=== PATIENT | female | born 1945 | race Caucasian/White ===

== ENCOUNTER 2023-09-09 08:23 | Outpatient (CLI) | payer MEDICARE, OTHER ==
[2023-09-09 12:13] LABS: BASOPHILS # (AUTO) 0.1 10^3/uL (0.0-0.1); BASOPHILS % (AUTO) 0.8 %; EOSINOPHILS # (AUTO) 0.2 10^3/uL (0.0-0.7); HCT - HEMATOCRIT 37.4 % (37.0-47.0); HGB - HEMOGLOBIN 11.5 g/dL (12.0-16.0); LYMPHOCYTES # (AUTO) 1.8 10^3/uL (1.5-3.5); LYMPHOCYTES % (AUTO) 19.8 %; MEAN CORPUSCULAR HEMOGLOBIN 28.3 pg (27.0-31.0); MEAN CORPUSCULAR HGB CONC 30.7 g/dL (32.0-36.0); MEAN CORPUSCULAR VOLUME 91.9 fL (81.0-99.0); MONOCYTES # (AUTO) 0.6 10^3/uL (0.0-1.0); MONOCYTES % (AUTO) 6.3 %; NEUTROPHILS # (AUTO) 6.5 10^3/uL (1.5-6.6); PLT - PLATELET COUNT 282 10^3/uL (130-450); RED BLOOD COUNT 4.07 10^6/uL (4.20-5.40); RED CELL DISTRIBUTION WIDTH 13.2 % (12.0-15.0); WHITE BLOOD COUNT 9.1 x10^3/uL (4.8-10.8)
[2023-09-09 12:23] LABS: ALBUMIN 4.1 g/dL (3.2-5.5); ALBUMIN/GLOBULIN RATIO 1.2 (1.0-2.2); ALKALINE PHOSPHATASE 79 IU/L (42-121); ALT ALANINE AMINOTRANSFERASE 10 IU/L (10-60); AST ASPARTATE AMINOTRANSFERASE 11 IU/L (10-42); BILIRUBIN,TOTAL 0.5 mg/dL (0.2-1.0); BUN - BLOOD UREA NITROGEN 34 mg/dL (6-20); CALCIUM 9.8 mg/dL (8.5-10.3); CARBON DIOXIDE - CO2 27 mmol/L (21-32); CHLORIDE 104 mmol/L (101-111); CHOL/HDL RATIO 6.3 (<4.4); CHOLESTEROL 221 mg/dL; CREATININE 1.9 mg/dL (0.6-1.3); GFR - MDRD 25 (>89); GLUCOSE 107 mg/dL (74-104); HDL CHOLESTEROL 35 mg/dL; LDL CHOLESTEROL,CALCULATED 156 mg/dL; LDL/HDL RATIO 4.5 (<4.4); POTASSIUM 4.4 mmol/L (3.5-4.5); SODIUM 137 mmol/L (135-145); TOTAL PROTEIN 7.4 g/dL (6.4-8.9); TRIGLYCERIDES 149 mg/dL (48-352); VLDL CHOLESTEROL 30 mg/dL
[2023-09-09 12:24] LABS: ESTIMATED AVERAGE GLUCOSE 120 mg/dL (70-100); HEMOGLOBIN A1c% 5.8 % (4.27-6.07)
[2023-09-09 12:35] LABS: THYROID STIMULATING HORMONE 5.61 uIU/mL (0.34-5.60)
== END 2023-09-09 08:24 | disposition home or self-care (01) ==
LOC: LAB.N 08:23
PROVIDERS: ATTEND Nurse Practitioner Family
DX: E03.9 Hypothyroidism, unspecified (principal); N28.9 Disorder of kidney and ureter, unspecified; I10 Essential (primary) hypertension; E78.5 Hyperlipidemia, unspecified; Z86.79 Personal history of other diseases of the circulatory system; Z13.1 Encounter for screening for diabetes mellitus
CPT/HCPCS: 36415; 80053; 80061; 83036; 83721; 84439; 84443; 85025

== ENCOUNTER 2023-10-09 10:17 | Outpatient (CLI) | payer MEDICARE, OTHER ==
--- NOTE | 2023-10-09 11:06 | Sleep Patient Instructions ---
Sleep Center Visit Summary - Patient Visit Information Reason for Visit: Initial consultation - Patient Instructions Additional Instructions: You will continue with CPAP therapy with pressure set at 10 cmH2O. A supply prescription will be updated with your DME. I have added an order to update your PAP machine. Please call the office to schedule a compliance follow up once you get your new device. We encourage you to try to lose weight. Please follow up with the sleep care office one month after obtaining new device. - Clinic Information Contact: [facility] [address] [place] [address] [email or web address] T: [phone]
--- NOTE | 2023-10-09 11:19 | SLEEP CARE CONSULTATION ---
Information from patient questionnaire entered by Trent Day. I have reviewed and concur with the information entered by Trent Day. This document represents the service I personally performed and the decisions made by me, Aishwarya Carson ARNP. History of Present Illness Service Date and Time: 10/09/2023 1017 Reason for Visit: New patient, Previously diagnosed sleep apnea, sleep apnea on CPAP therapy Chief Complaint: reports: Insomnia, Unrefreshed sleep, Snoring, Excessive daytime sleepiness, Observed pauses in breathing, Fatigue, Frequent awakenings at night Date of Onset: 12 Usual bedtime: 2200 Time it takes to fall asleep: 10MINS Observed to quit breathing while asleep: Yes Sleeps alone due to snoring: No Reasons for waking at night: reports: Choking, Snoring, Gasping for air, Pain, Bathroom Toss, Turn, or Twitch while sleeping: No Recalls having dreams: No Usually gets out of bed at: 0700 Feels refreshed in the morning: Yes Morning headache: No Sleepy or fatigued during the day: No Ever fallen asleep while driving: No Takes day naps: No Dreams during day naps: No Prior sleep studies: Yes Additional HPI information: REYNALDO VIVEROS was previously diagnosed to have severe, AHI 59, obstructive sleep apnea-hypopnea syndrome as seen in sleep study done on 10/30/2011 through [facility] in [place], [place] and comes in today to establish care for CPAP therapy. - Parasomnia Symptoms Ever been unable to move upon waking from sleep: No Walks in sleep: No Talks in sleep: No Ever acted out dreams in sleep: No Ever felt weak in the knees when startled or emotional: No Bothered by creepy, crawly, restless sensations in legs: No Problems with memory or concentration: No CPAP Compliance Data - Data Reviewed with Patient Average duration of nightly device use: 9.1 hours Compliance rate %: 100 (90/90 days used) Current pressure setting (cmH2O): 10 Average residual AHI: 0.4 Central apnea: 0 Obstructive apnea: 0.2 Average large leak: 20 L/min Compliance data discussion: She has a [employer]Med Airsense 10. She was getting her supplies from a [facility] in [place]. She uses a full face mask. Subjective Patient concerns: denies: aerophagia, mask discomfort, air blowing in eyes, mask leak noise, condensation in mask/hose, nasal congestion, dry mouth, nose, throat, epistaxis Observed to snore while using device: No Current pressure setting perceived as: too low (hard to tell) On therapy, patient: reports: other (waking up more than before in last few months). denies: sleeping better, awakening more refreshed, drowsiness while driving Initial [place] Sleepiness Scale score: 3 (09/18/23) Past Medical History Past Medical History: reports: Hypertension, Stroke (2017), Other (PSVT in past) Social History The patient's occupation is a RETIRED. Patient is and lives in [place]. Have you smoked in the past 12 months: Yes Cigarettes per day (20/pack): 5 Years of smokin Smoking Pack Years: 6.0 Alcohol use: Yes Alcohol amount and frequency: 2 DRINKS 2 DAYS PER MONTH Caffeine use: No Caffeine amount and frequency: drinks decaff coffee, one in AM Family History Family history of sleep disordered breathing: No Allergies and Home Medications Known drug allergies: No Drug allergies reviewed: Yes Home medication list reviewed: Yes (as listed, plus another BP med she cannot remember) Allergy and home medication list: Allergies No Known Drug Allergies Allergy Home Medications Medication Instructions Recorded Confirmed Last Taken Type Metoprolol Tartrate 100 mg PO BID 02/12/15 10/09/23 Unknown History Clopidogrel See Rx Instructions .ROUTE .COMPLEX 10/09/23 10/09/23 Unknown History Review of Systems Cardiovascular: reports: high blood pressure Ear/Nose/Throat: reports: wisdom teeth removed Immunologic: reports: sneezing Physical Exam Vital signs obtained and entered by: TRENT Vale MA Blood Pressure: 194/97 (RIGHT ARM) Cuff size: regular Heart Rate: 56 O2 Saturation: 98 Height: 5 ft 6 in Weight: 206 lb 9.6 oz Body Mass Index: 33.3 BMI Classification: Obese Neck circumference: 15 Impression and Plan 1. Obstructive Sleep Apnea-Hypopnea Syndrome, severe, with good treatment compliance and good apnea control. On CPAP therapy, the patient has better sleep quality and is more rested overall. She says her CPAP may not be working right and was last updated 6-8 years ago. She says she is taking naps more often and is not waking up feeling rested in the last month or so. The patients CPAP is over 5 years old and of reasonable use. Thus, the CPAP will be updated. A DWO prescription will be made. Compliance guidelines for new device and follow up discussed. She would like to continue getting her supplies from her DME in [place]. Patient's apnea severity and rationale for treatment to reduce apnea, improve sleep quality and reduce cardiovascular and cerebrovascular events was reviewed. I also reviewed the benefit of consistent device use of CPAP for hypertension, cerebrovascular disease (hx of stroke). 2. Elevated blood pressure reading in patient with hypertension. Her blood pressure was elevated at 194/97 today and she says that this has been the norm lately. She had no complaints of chest pain, shortness of breath, dizziness or headaches. She is currently on Metoprolol and another medication that she cannot remember the name. 3. Obesity, unspecified. Currently patients BMI is 33.3. Obesity increases the risk of apnea, CPAP pressure requirements and overall health risks especially cardiovascular and diabetes. Thus patient is advised to lose weight. * Continue CPAP pressure at 10 cmH2O * Update machine * Update supply prescription * Notify me if snoring with mask or feeling that the pressure is too much or too little * Attempt to lose weight * Call this office if any problems using CPAP * Return for follow up one month after obtaining new device, or sooner if concerns arise Continue with device pressure at (cmH2O): 10 Counseling Topics: Weight loss health impact Prescriptions: Auto CPAP, Device supplies Plan: New CPAP and compliance follow up Visit Type: In Office Time Spent with Patient (minutes): 44 Provider Statement: I spent 100% of the Face to Face Visit with the patient with greater than 50% spent counseling the patient and coordination of care.
[2023-10-09 11:27] VITALS: BP 194/97; O2SAT 98
== END 2023-10-09 10:18 | disposition home or self-care (01) ==
LOC: SC 10:17
PROVIDERS: ATTEND Nurse Practitioner Family
DX: G47.33 Obstructive sleep apnea (adult) (pediatric) (principal); E66.9 Obesity, unspecified; Z68.33 Body mass index [BMI] 33.0-33.9, adult; F17.210 Nicotine dependence, cigarettes, uncomplicated
CPT/HCPCS: 99203; G0463; 99212

== ENCOUNTER 2024-01-24 09:36 | Outpatient (CLI) | payer MEDICARE, OTHER ==
--- NOTE | 2024-01-24 10:04 | Sleep Patient Instructions ---
Sleep Center Visit Summary - Patient Visit Information Reason for Visit: First compliance follow-up for PAP therapy - Patient Instructions Additional Instructions: You were here for follow up of CPAP therapy. You will be continued on CPAP therapy with pressure at 10 cmH2O. You should follow up with sleep care in 12 months. You may contact us sooner for any questions or concerns. - Clinic Information Contact: [facility] [address] [place] [address] [email or web address] T: [phone]
--- NOTE | 2024-01-24 10:07 | SLEEP CARE CONSULTATION ---
Information from patient questionnaire entered by Trent Day. I have reviewed and concur with the information entered by Trent Day. This document represents the service I personally performed and the decisions made by , Aishwarya Carson ARNP. History of Present Illness Service Date and Time: 01/24/2024 0936 Previous diagnosis: Severe, Obstructive Sleep Apnea-Hypopnea Syndrome AHI: 59 (10/30/2011) Reason for follow up: first compliance after device update Equipment type: CPAP (RESMED Airsense 10, S/U 11/18/23) Equipment obtained from: Other ([facility]) Mask style: Full face Backup mask available: Yes Last cushion change: 1 week Prior sleep studies: Yes Year and Where: 2011 HPI additional information: REYNALDO VIVEROS was diagnosed to have severe, AHI 59, obstructive sleep apnea- hypopnea syndrome and returned today for CPAP therapy first compliance after updating device follow-up. Sleep Study - Results Prior sleep studies: Yes CPAP Compliance Data - Data Reviewed with Patient Average duration of nightly device use: 9 HRS 33 MINS Compliance rate %: 97 (11/18/23-12/17/23; 29/30 days used) Current pressure setting (cmH2O): 10 Average residual AHI: 0.3 Central apnea: 0 Obstructive apnea: 0.1 Hypopnea: 0.2 Average large leak: 0.1 L/min Subjective Patient concerns: denies: aerophagia, mask discomfort, air blowing in eyes, mask leak noise, condensation in mask/hose, nasal congestion, dry mouth, nose, throat, epistaxis Observed to snore while using device: No Current pressure setting perceived as: comfortable On therapy, patient: reports: sleeping better, awakening more refreshed, being more awake and alert during the day, more rested overall. denies: drowsiness while driving Initial [place] Sleepiness Scale score: 3 (09/18/23) Current [place] Sleepiness Scale score: 2 (01/24/24) Allergies and Home Medications Known drug allergies: No Drug allergies reviewed: Yes Home medication list reviewed: Yes (no changes) Allergy and home medication list: Allergies No Known Drug Allergies Allergy (Verified 01/24/24 09:51) Review of Systems Review of systems same as previous: Yes (no changes) Physical Exam Vital signs obtained and entered by: TRENT Vale MA Blood Pressure: 146/75 (RIGHT ARM) Cuff size: long Heart Rate: 61 O2 Saturation: 97 Height: 5 ft 6 in Weight: 207 lb Body Mass Index: 33.4 BMI Classification: Obese Impression and Plan 1. Obstructive Sleep Apnea-Hypopnea Syndrome, severe, with good treatment compliance and good apnea control. On CPAP therapy, the patient has better sleep quality and is more rested overall. She likes her new device. She has significant improvement of her sleep apnea and is satisfied with current CPAP therapy. She says she is moving to [place] in about a week. She will establish with a sleep provider there for further followup. Patient's apnea severity and rationale for treatment to reduce apnea, improve sleep quality and reduce cardi ovascular and cerebrovascular events was reviewed. I also reviewed the benefit of consistent device use of CPAP for hypertension, cerebrovascular disease (stroke). 2. Obesity, unspecified. Currently patients BMI is 33.4. Obesity increases the risk of apnea, CPAP pressure requirements and overall health risks especially cardiovascular and diabetes. Thus patient is advised to lose weight. * Continue auto CPAP pressure at 10 cmH2O * Notify me if snoring with mask or feeling that the pressure is too much or too little * Attempt to lose weight * Call this office if any problems using CPAP * Return for follow up in 12 months with new provider, or sooner if concerns arise Continue with device pressure at (cmH2O): 10 Counseling Topics: Weight loss health impact Follow up with Sleep Care in: 1 year Visit Type: In Office Time Spent with Patient (minutes): 12 Provider Statement: I spent 100% of the Face to Face Visit with the patient with greater than 50% spent counseling the patient and coordination of care.
[2024-01-24 10:13] VITALS: BP 146/75; O2SAT 97
== END 2024-01-24 09:37 | disposition home or self-care (01) ==
LOC: SC 09:36
PROVIDERS: ATTEND Nurse Practitioner Family
DX: G47.33 Obstructive sleep apnea (adult) (pediatric) (principal); E66.9 Obesity, unspecified; Z68.33 Body mass index [BMI] 33.0-33.9, adult
CPT/HCPCS: 99212; G0463